=== PATIENT | female | born 1980 | race Caucasian/White ===

== ENCOUNTER 2016-08-19 13:38 | Emergency (ER) | payer OTHER ==
[~2016-08-19 13:38] MED LIST: /MIRT15TA PO; /ONDA4TA PO; /PANT40TA PO; DEPRO PROVERA SC; ERYT25CAEC PO; GABA100C PO; HUMA100I SC; HUMA100I5 SC; INSULANT SC; MARI5CAP PO; NAPR500T3 PO; NICO14DI20 TD; PARO20TA2 PO; PRE-TAB3 PO; PRIL20CA9 PO; PROM25TA3 PO; REGL10TA6 PO; TRAZ50TA2 PO; TYLE325T5 PO; XANA0.25 PO; ZOFR20TA PO
[2016-08-19] MEDS ORDERED: METOCLOPRAMIDE INJ 10MG/2ML VIAL (J2765) As Ordered ONE (14:02)
[2016-08-19] MEDS ORDERED: NS 1,000 ML IV ONE (14:15)
[2016-08-19] MEDS ORDERED: METOCLOPRAMIDE INJ 10MG/2ML VIAL (J2765) IV ONE (14:15)
[2016-08-19 14:22] LABS: BASO # 0.1 K/mm3 (0.0-0.2); BASO % 0.5 % (0.0-1.0); EOS # 0.1 K/mm3 (0.0-0.50); EOS % 0.3 % (0.0-3.0); LARGE UNSTAINED CELL # 0.1 K/mm3 (0.0-0.4); LARGE UNSTAINED CELL % 0.4 % (0.0-4.0); LYMPH # 2.2 K/mm3 (1.5-4.5); MEAN CORPUSCULAR HEMOGLOBIN 31.5 pg (27.0-33.0); MEAN CORPUSCULAR HGB CONC 34.2 g/dl (32.0-36.5); MEAN CORPUSCULAR VOLUME 92.1 fl (80.0-96.0); MONO # 0.4 K/mm3 (0.0-0.8); MONO % 1.7 % (0.0-5.0); NEUTROPHILS # 21.6 K/mm3 (1.8-7.7); NEUTROPHILS % 88.1 % (36.0-66.0); PLATELET COUNT, AUTOMATED 306 k/mm3 (150-450); RED CELL DISTRIBUTION WIDTH 12.2 % (11.5-14.5); WHITE BLOOD COUNT 24.5 K/mm3 (4.0-10.0)
[2016-08-19] MEDS ORDERED: LORazepam 2 MG/ML VIAL (J2060) IV STA (14:24)
[2016-08-19] MEDS ORDERED: LORazepam 2 MG/ML VIAL (J2060) As Ordered ONE (14:25)
[2016-08-19 14:34] LABS: CONTROL LINE HCG INT CTR LINE PRESENT
[2016-08-19 14:41] LABS: ALBUMIN 4.6 GM/DL (3.2-5.2); ALBUMIN/GLOBULIN RATIO 1.64 (1.00-1.93); ALKALINE PHOSPHATASE 71 U/L (45-117); ALT/SGPT 35 U/L (12-78); ANION GAP 15 MEQ/L (8-16); AST/SGOT 22 U/L (15-37); BILIRUBIN,DIRECT 0.2 MG/DL (0.0-0.2); BILIRUBIN,TOTAL 0.6 MG/DL (0.2-1.0); BLOOD UREA NITROGEN 14 MG/DL (7-18); CARBON DIOXIDE LEVEL 19 MEQ/L (21-32); CHLORIDE LEVEL 105 MEQ/L (98-107); CREATININE FOR GFR 0.88 MG/DL (0.55-1.02); GLOMERULAR FILTRATION RATE > 60.0 (>60); GLUCOSE, FASTING 273 MG/DL (70-105); POTASSIUM SERUM 3.8 MEQ/L (3.5-5.1); SODIUM LEVEL 139 MEQ/L (136-145); TOTAL PROTEIN 7.4 GM/DL (6.4-8.2)
--- NOTE | 2016-08-19 17:00 | REP ---
ABDOMINAL SERIES: Supine and erect views of the abdomen are performed. There is no free air. There is no obstruction. There are no dilated small bowel loops. No abnormal calcifications are seen in the abdomen or pelvis. An accompanying view of the chest demonstrates no acute infiltrate. Heart is normal in size. IMPRESSION: Negative abdominal series. Signed by Eber Lazo MD 08/19/2016 05:27 P
[2016-08-19 17:25] LABS: ANION GAP 8 MEQ/L (8-16); BLOOD UREA NITROGEN 14 MG/DL (7-18); CALCIUM LEVEL 8.9 MG/DL (8.5-10.1); CARBON DIOXIDE LEVEL 25 MEQ/L (21-32); CHLORIDE LEVEL 105 MEQ/L (98-107); CREATININE FOR GFR 0.71 MG/DL (0.55-1.02); GLOMERULAR FILTRATION RATE > 60.0 (>60); GLUCOSE, FASTING 252 MG/DL (70-105); POTASSIUM SERUM 3.8 MEQ/L (3.5-5.1); SODIUM LEVEL 138 MEQ/L (136-145)
[2016-08-19] MEDS ORDERED: PROMETHAZINE INJ 25 MG/ML VIAL (J2550) IV ONE (18:15)
[2016-08-19] MEDS ORDERED: ATIV1TAB7 PO (18:20)
[2016-08-19 19:52] VITALS: BP 104/55
== END 2016-08-19 19:55 | disposition home or self-care (01) ==
LOC: EDBD 13:38 → M ED 15:18
DX: K31.84 Gastroparesis (principal); E11.9 Type 2 diabetes mellitus without complications; F17.200 Nicotine dependence, unspecified, uncomplicated; Z79.4 Long term (current) use of insulin; Z79.899 Other long term (current) drug therapy

== ENCOUNTER → 2016-11-24 | Outpatient (REF) | payer OTHER ==
[~2016-11-24] MED LIST changes: +ATIV1TAB7 PO
[2016-11-24 10:51] LABS: FOLATE 8.5 NG/ML (>5.4); VITAMIN B12 LEVEL 803 PG/ML (247-911)
[2016-11-24 10:59] LABS: FREE T4 1.13 NG/DL (0.76-1.46)
[2016-11-29 12:29] LABS: ALBUMIN 4.42 GM/DL (3.29-5.55); ALBUMIN % 63.2 % (55.8-66.1)
[2016-11-29 12:30] LABS: GAMMA GLOBULIN % 9.7 % (11.1-18.8)
== END ==
LOC: M LABNEURO 08:42
PROVIDERS: ATTEND Psychiatry & Neurology Neurology
DX: E11.42 Type 2 diabetes mellitus with diabetic polyneuropathy (principal)

== ENCOUNTER 2017-02-15 12:29 | Day surgery (SDC) | payer OTHER ==
[~2017-02-15] VITALS: Ht 167.6 cm; Wt 70.3 kg
[~2017-02-15 12:29] MED LIST changes: +ATOR1TAB21 PO; +BASA100I SQ; +NORT50CA PO; +VITA1CAP40 PO
[2017-02-15] MEDS ORDERED: NS 1,000 ML IV ONE (13:00)
[2017-02-15] MEDS ORDERED: LIDOCAINE 2% INJ 100 MG/5 ML SDV (FOR ANES.) As Ordered ONE (14:04)
[2017-02-15] MEDS ORDERED: PROPOFOL 500 MG/50 ML VIAL As Ordered ONE (14:04)
--- NOTE | 2017-02-15 14:10 | ROOR ---
Patient Name: Katrin Somers Procedure Date: 02/15/2017 1:48 PM Date of : 1980 Age: 36 Room: [facility] [place] Gender: Female Note Status: Finalized Procedure: Upper Endoscopy + Biopsies Indications: Epigastric abdominal pain, Gastroparesis, Follow-up of gastroparesis Providers: Tremayne Lee MD Referring MD: SANDRA SUÁREZ MD Requesting Provider: Medicines: Monitored Anesthesia Care Complications: No immediate complications. Procedure: Pre-Anesthesia Assessment: - The heart rate, respiratory rate, oxygen saturations, blood pressure, adequacy of pulmonary ventilation, and response to care were monitored throughout the procedure. The Endoscope was introduced through the mouth, and advanced to the second part of duodenum. The upper GI endoscopy was accomplished without difficulty. The patient tolerated the procedure well. Findings: The Z-line was irregular and was found 35 cm from the incisors. Multiple biopsies were obtained with cold forceps for evaluation to rule out Rowan's Esophagus randomly at the gastroesophageal junction. A medium-sized hiatal hernia was present. No other significant abnormalities were identified in a careful examination of the stomach. The exam of the duodenum was otherwise normal. Impression: - Z-line irregular, 35 cm from the incisors. - Medium-sized hiatal hernia. - Multiple biopsies were obtained at the gastroesophageal junction. - The examination was otherwise normal. Recommendation: - Patient has a contact number available for emergencies. The signs and symptoms of potential delayed complications were discussed with the patient. Return to normal activities tomorrow. Written discharge instructions were provided to the patient. - Resume previous diet. - Continue present medications. - Await pathology results. - Telephone GI clinic for pathology results in 1 week. - Return to referring physician. - The findings and recommendations were discussed with the patient's family. Tremayne Lee MD Tremayne Lee MD 02/15/2017 2:09:56 PM This report has been signed electronically. Number of Addenda: 0 Note Initiated On: 02/15/2017 1:48 PM Estimated Blood Loss: Estimated blood loss: none.
[2017-02-15 14:35] VITALS: BP 141/85
== END 2017-02-15 14:48 | disposition home or self-care (01) ==
LOC: M OPP 12:29
PROVIDERS: ATTEND Internal Medicine Gastroenterology
DX: R10.13 Epigastric pain (principal); K31.84 Gastroparesis; K22.8 Other specified diseases of esophagus; K44.9 Diaphragmatic hernia without obstruction or gangrene; E78.5 Hyperlipidemia, unspecified; E10.9 Type 1 diabetes mellitus without complications; K21.9 Gastro-esophageal reflux disease without esophagitis; G62.9 Polyneuropathy, unspecified; F17.210 Nicotine dependence, cigarettes, uncomplicated; F12.10 Cannabis abuse, uncomplicated; Z79.899 Other long term (current) drug therapy

== ENCOUNTER 2017-03-10 13:57 | Emergency (ER) | payer OTHER ==
[2017-03-10] MEDS: ONDANSETRON 4MG/2ML VIAL (J2405) IV ×2 (14:25→17:39)
[2017-03-10] MEDS: PANTOPRAZOLE 40MG INJ (PROTONIX) (C9113) IV (14:25)
[2017-03-10] MEDS: KETOROLAC 30 MG/ML VIAL (J1885) IV (14:25)
[2017-03-10 14:27] LABS: BASO # 0.1 10^3/uL (0.0-0.2); BASO % 0.4 % (0.0-1.0); EOS % 0.1 % (0.0-3.0); HEMATOCRIT 42.6 % (36.0-47.0); HEMOGLOBIN 14.8 g/dl (12.0-16.0); IMMATURE GRANULOCYTE # 0.2 10^3/uL (0-0); IMMATURE GRANULOCYTE % 0.6 % (0-0); LYMPH # 2.2 10^3/uL (1.5-4.5); LYMPH % 8.6 % (24.0-44.0); MEAN CORPUSCULAR HEMOGLOBIN 30.2 pg (27.0-33.0); MEAN CORPUSCULAR HGB CONC 34.7 g/dl (32.0-36.5); MEAN CORPUSCULAR VOLUME 86.9 fl (80.0-96.0); MONO # 0.9 10^3/uL (0.0-0.8); MONO % 3.5 % (0.0-5.0); NEUTROPHILS # 21.9 10^3/uL (1.8-7.7); NEUTROPHILS % 86.8 % (36.0-66.0); PLATELET COUNT, AUTOMATED 339 10^3/uL (150-450); WHITE BLOOD COUNT 25.3 10^3/uL (4.0-10.0)
[2017-03-10] MEDS: NS 1,000 ML IV ×2 (14:37→17:39)
[2017-03-10 14:38] LABS: CONTROL LINE HCG INT CTR LINE PRESENT; HCG, SERUM QUALITATIVE NEGATIVE (NEGATIVE)
[2017-03-10 14:47] LABS: ALBUMIN 4.3 GM/DL (3.2-5.2); ALBUMIN/GLOBULIN RATIO 1.34 (1.00-1.93); ALKALINE PHOSPHATASE 83 U/L (45-117); ALT/SGPT 76 U/L (12-78); ANION GAP 11 MEQ/L (8-16); AST/SGOT 39 U/L (7-37); BILIRUBIN,DIRECT 0.1 MG/DL (0.0-0.2); BILIRUBIN,TOTAL 0.6 MG/DL (0.2-1.0); BLOOD UREA NITROGEN 14 MG/DL (7-18); CARBON DIOXIDE LEVEL 21 MEQ/L (21-32); CHLORIDE LEVEL 106 MEQ/L (98-107); CREATININE FOR GFR 0.73 MG/DL (0.55-1.02); GLOMERULAR FILTRATION RATE > 60.0 (>60); GLUCOSE, FASTING 342 MG/DL (70-105); LIPASE 70 U/L (73-393); POTASSIUM SERUM 3.8 MEQ/L (3.5-5.1); SODIUM LEVEL 138 MEQ/L (136-145); TOTAL PROTEIN 7.5 GM/DL (6.4-8.2)
[2017-03-10] MEDS: diphenhydrAMINE INJ 50MG/ML VIAL (J1200) IV (15:00)
[2017-03-10] MEDS: MORPHINE 4 MG/ML 1ML SYRINGE IV (15:00)
[2017-03-10] MEDS: METOCLOPRAMIDE INJ 10MG/2ML VIAL (J2765) IV (15:48)
[2017-03-10] MEDS: HumuLIN R (REGULAR) INSULIN (NovoLIN R) **100U/ML** PER UNIT IV (15:48)
[2017-03-10 16:54] LABS: BEDSIDE GLUCOSE 148 MG/DL (70-105)
[2017-03-10 17:06] LABS: KETONE, URINE AUTO RFX 2+ mg/dL (NEGATIVE); LEUKOCYTE ESTERASE UR AUTO RFX NEGATIVE (NEGATIVE); NITRITE, URINE AUTO RFX NEGATIVE (NEGATIVE); RBC, URINE AUTO RFX 1 /HPF (0-3); SPECIFIC GRAVITY UR AUTO RFX 1.029 (1.002-1.035); SQUAM EPITHELIAL CELL UR AURFX 2 /HPF (0-6); WBC, URINE AUTO RFX 0 /HPF (0-3)
== END 2017-03-10 18:58 | disposition home or self-care (01) ==
LOC: M ED 13:57
DX: R10.84 Generalized abdominal pain (principal); R11.2 Nausea with vomiting, unspecified; R19.7 Diarrhea, unspecified; E11.9 Type 2 diabetes mellitus without complications; G62.9 Polyneuropathy, unspecified; Z79.899 Other long term (current) drug therapy; Z79.4 Long term (current) use of insulin
CPT/HCPCS: C9113

== ENCOUNTER 2017-12-26 06:19 | Emergency (ER) | payer OTHER ==
[2017-12-26] MEDS: KETOROLAC TROMETHAMINE 10 MG TAB PO (07:09)
[2017-12-26 07:38] LABS: BASO # 0.1 10^3/uL (0.0-0.2); BASO % 0.4 % (0.0-1.0); EOS # 0.3 10^3/uL (0.0-0.50); EOS % 2.3 % (0.0-3.0); HEMATOCRIT 41.2 % (36.0-47.0); HEMOGLOBIN 13.6 g/dl (12.0-15.5); IMMATURE GRANULOCYTE % 0.6 % (0-3.0); LYMPH % 34.4 % (24.0-44.0); MEAN CORPUSCULAR HEMOGLOBIN 31.1 pg (27.0-33.0); MEAN CORPUSCULAR VOLUME 94.1 fl (80.0-96.0); MONO # 0.7 10^3/uL (0.0-0.8); MONO % 5.8 % (0.0-5.0); NEUTROPHILS # 6.5 10^3/uL (1.8-7.7); NEUTROPHILS % 56.5 % (36.0-66.0); PLATELET COUNT, AUTOMATED 300 10^3/uL (150-450); RED BLOOD COUNT 4.38 10^6/uL (4.00-5.40); RED CELL DISTRIBUTION WIDTH 12.8 % (11.5-14.5); WHITE BLOOD COUNT 11.5 10^3/uL (4.0-10.0)
[2017-12-26 07:51] LABS: C REACTIVE PROTEIN QUANTITATIV 0.37 MG/DL (0.00-0.30)
[2017-12-26 07:52] LABS: ANION GAP 4 MEQ/L (8-16); BLOOD UREA NITROGEN 6 MG/DL (7-18); CALCIUM LEVEL 9.2 MG/DL (8.5-10.1); CARBON DIOXIDE LEVEL 29 MEQ/L (21-32); CHLORIDE LEVEL 109 MEQ/L (98-107); CREATININE FOR GFR 0.64 MG/DL (0.55-1.30); GLOMERULAR FILTRATION RATE > 60.0 (>60); GLUCOSE, FASTING 122 MG/DL (70-100); POTASSIUM SERUM 4.2 MEQ/L (3.5-5.1); SODIUM LEVEL 142 MEQ/L (136-145)
[2017-12-26 08:08] LABS: ERYTHROCYTE SEDIMENTATION RATE 8 mm/hr (0-20)
== END 2017-12-26 08:50 | disposition home or self-care (01) ==
LOC: M ED 06:19
DX: M79.672 Pain in left foot (principal); R22.42 Localized swelling, mass and lump, left lower limb; E10.9 Type 1 diabetes mellitus without complications; E78.00 Pure hypercholesterolemia, unspecified; F33.9 Major depressive disorder, recurrent, unspecified; F41.9 Anxiety disorder, unspecified; G62.9 Polyneuropathy, unspecified; Z79.899 Other long term (current) drug therapy; Z79.4 Long term (current) use of insulin
CPT/HCPCS: 73630

== ENCOUNTER 2019-03-13 14:04 | Emergency (ER) | payer OTHER ==
[~2019-03-13 14:04] MED LIST changes: -/MIRT15TA PO; -/ONDA4TA PO; -/PANT40TA PO; +CLEO300C2 PO; +MIRT1TAB20 PO; +NAPR-885 PO; -NAPR500T3 PO; +ONDA-1 PO; +PHEN1SUP7 PR; +PROT1TAB2 PO; -VITA1CAP40 PO; +VITA50005 PO; -ZOFR20TA PO; +ZOFR4TAB16 PO
[2019-03-13] MEDS ORDERED: ADME100I2 (14:20)
[2019-03-13 14:48] LABS: BASO # 0.1 10^3/uL (0.0-0.2); BASO % 0.4 % (0.0-1.0); HEMATOCRIT 40.7 % (36.0-47.0); HEMOGLOBIN 13.6 g/dl (12.0-15.5); LYMPH # 1.5 10^3/uL (1.5-5.0); LYMPH % 7.6 % (24.0-44.0); MEAN CORPUSCULAR HEMOGLOBIN 29.7 pg (27.0-33.0); MEAN CORPUSCULAR HGB CONC 33.4 g/dl (32.0-36.5); MEAN CORPUSCULAR VOLUME 88.9 fl (80.0-96.0); MONO # 0.5 10^3/uL (0.0-0.8); MONO % 2.6 % (0.0-5.0); NEUTROPHILS # 18.1 10^3/uL (1.5-8.5); NEUTROPHILS % 88.7 % (36.0-66.0); PLATELET COUNT, AUTOMATED 347 10^3/uL (150-450); RED BLOOD COUNT 4.58 10^6/uL (4.00-5.40); WHITE BLOOD COUNT 20.4 10^3/uL (4.0-10.0)
[2019-03-13 15:11] LABS: ALBUMIN 4.1 GM/DL (3.2-5.2); ALT/SGPT 16 U/L (12-78); BILIRUBIN,DIRECT 0.2 MG/DL (0.0-0.2); BILIRUBIN,TOTAL 0.5 MG/DL (0.2-1.0); BLOOD UREA NITROGEN 13 MG/DL (7-18); CALCIUM LEVEL 9.3 MG/DL (8.5-10.1); CARBON DIOXIDE LEVEL 21 MEQ/L (21-32); CHLORIDE LEVEL 105 MEQ/L (98-107); CREATININE FOR GFR 0.82 MG/DL (0.55-1.30); GLOMERULAR FILTRATION RATE > 60.0 (>60); GLUCOSE, FASTING 341 MG/DL (70-100); LIPASE 108 U/L (73-393); SODIUM LEVEL 138 MEQ/L (136-145); TOTAL PROTEIN 7.2 GM/DL (6.4-8.2)
[2019-03-13 15:32] LABS: HCG, SERUM QUALITATIVE NEGATIVE (NEGATIVE)
[2019-03-13] MEDS ORDERED: NS 1,000 ML IV ONE (15:45)
[2019-03-13] MEDS ORDERED: KETOROLAC 30 MG/ML VIAL (J1885) IV ONE (15:45)
[2019-03-13] MEDS ORDERED: METOCLOPRAMIDE INJ 10MG/2ML VIAL (J2765) IV ONE (15:45)
[2019-03-13] MEDS ORDERED: PANTOPRAZOLE 40MG INJ (PROTONIX) (C9113) IV ONE (15:45)
[2019-03-13 16:08] LABS: HEMOGLOBIN A1c 7.7 %
--- NOTE | 2019-03-13 16:36 | REP ---
Abdomen series: Two views. History: Pain and vomiting. Findings: Supine and upright views of the abdomen demonstrate a virtually gasless abdomen. Psoas margins and flank stripes are intact. There is a small quantity of gas in the stomach and in a single small bowel loop in the left central abdomen. No fluid distended loops are visible. No mass or pathologic calcification is seen. Impression: Essentially gasless abdomen. No evidence of obstruction. No evidence of free air. Electronically Signed by Bruce Diehl MD 03/13/2019 04:27 P
[2019-03-13] MEDS ORDERED: ISOVUE-370 76% 100ML VIAL (Q9967) As Ordered ONE (17:39)
[2019-03-13] MEDS ORDERED: MORPHINE 4 MG/ML 1ML VIAL/SYRINGE (J2270) IV ONE (18:15)
--- NOTE | 2019-03-13 18:24 | REPVR ---
PROCEDURE INFORMATION: Exam: CT Abdomen And Pelvis With Contrast Exam date and time: 03/13/2019 6:00 PM Age: 38 years old Clinical indication: Abdominal pain; Generalized TECHNIQUE: Imaging protocol: Computed tomography of the abdomen and pelvis with intravenous contrast. Radiation optimization: All CT scans at this facility use at least one of these dose optimization techniques: automated exposure control; mA and/or kV adjustment per patient size (includes targeted exams where dose is matched to clinical indication); or iterative reconstruction. Contrast material: ISOVUE 370; Contrast volume: 100 ml; Contrast route: IV; COMPARISON: CT ABD PELVIS WITH CONTRAST 11/14/2013 5:10 PM FINDINGS: Lungs: No suspicious mass or airspace process in the visualized lung bases. Liver: Liver appears normal with no focal abnormality. Gallbladder and bile ducts: Gallbladder is present and shows no evidence of gallstone. Pancreas: Pancreas appears normal. No focal mass or peripancreatic inflammation. Spleen: Spleen appears homogeneous without focal mass. Adrenals: Adrenal glands are normal in appearance. Kidneys and ureters: Kidneys demonstrate no stone, solid mass or hydronephrosis. There does appear to be patchy cortical decreased enhancement bilaterally, probably most prominent in the upper pole left kidney, suggesting possible pyelonephritis Stomach and bowel: No evidence of small bowel obstruction. No evidence of acute diverticulitis. Appendix: Normal caliber appendix is identified, with no adjacent inflammation. Intraperitoneal space: No pneumoperitoneum. No abnormal pelvic mass. Vasculature: Atherosclerotic change present in the aorta, without aneurysm. Main portal and splenic veins enhance normally. Lymph nodes: No bulky lymphadenopathy. Bladder: Urinary bladder appears normal. Bones/joints: Bony structures show no acute fracture or destructive process. Soft tissues: No effacement of normal fat planes in the ischiorectal fossa. IMPRESSION: 1. Patchy enhancement involving the kidneys, which appears to involve the cortical tissue, suggesting possible multifocal pyelonephritis. No obstructive change. Correlation with labs is recommended. 2. No other concerning finding. Electronically signed by: Rajiv Baptiste On 03/13/2019 18:24:17 PM
[2019-03-13] MEDS ORDERED: PANT20TA2 PO (20:51)
[2019-03-13] MEDS ORDERED: REGL10TA6 PO (20:51)
[2019-03-13 20:57] VITALS: BP 167/82
--- NOTE | 2019-03-15 06:35 | ED PDOC ---
Post-Departure Follow-Up dr enriquez faxed formal report of ct for fu karinag Jose Rollins MD Mar 15, 2019 06:35
== END 2019-03-13 21:02 | disposition home or self-care (01) ==
LOC: M ED 14:04 → EDBD 14:04 → M ED 21:02
DX: K31.84 Gastroparesis (principal); E10.9 Type 1 diabetes mellitus without complications; F33.9 Major depressive disorder, recurrent, unspecified; F41.9 Anxiety disorder, unspecified; E78.5 Hyperlipidemia, unspecified; G62.9 Polyneuropathy, unspecified; Z79.899 Other long term (current) drug therapy; Z79.4 Long term (current) use of insulin; F17.210 Nicotine dependence, cigarettes, uncomplicated
CPT/HCPCS: 74019; 74177; 80048; 80076; 81001; 83036; 83690; 84703; 85025; 87088; 87186; 96361; 96374; 96375; 99284; C9113; J1885; J2270; J2765; Q9967

== ENCOUNTER → 2020-12-07 | Outpatient (REF) | payer OTHER ==
[~2020-12-07] MED LIST changes: +ADME100I2; +ERYT1CAP2 PO; -ERYT25CAEC PO; +PANT20TA6 PO
[2020-12-07 18:10] LABS: MALB URINE SIEMENS 51.4 MG/L; MAU/CREAT RATIO 44.3 MCG/MG (0.0-30.0)
== END ==
LOC: M LAB REF 16:56
PROVIDERS: ATTEND Nurse Practitioner Family
DX: E10.65 Type 1 diabetes mellitus with hyperglycemia (principal)

== ENCOUNTER → 2021-01-04 | Outpatient (REF) | payer OTHER ==
[2021-01-04 16:22] LABS: CREATININE 24 HOUR, URINE 946.5 MG/24HR (600-1800); CREATININE, URINE 63.1 MG/DL; URINE TOTAL PROTEIN 10.8 MG/DL (0-12)
== END ==
LOC: M LAB REF 13:44
PROVIDERS: ATTEND Internal Medicine Nephrology
DX: E10.22 Type 1 diabetes mellitus with diabetic chronic kidney disease (principal)

== ENCOUNTER → 2022-06-29 | Day surgery (SDC) | payer OTHER ==
[~2022-06-29] VITALS: Ht 167.6 cm; Wt 61.2 kg
[~2022-06-29] MED LIST changes: +ERGO500029; +GABA-282 PO; +NS 1,000 ML IV ONE; +OMEP-173 PO; +ONDANSETRON 4MG 2ML VIAL IV STA
[2022-06-29 07:28] VITALS: BP 190/98
== END | disposition home or self-care (01) ==
LOC: M OPP 06:52
PROVIDERS: ATTEND Internal Medicine Gastroenterology
DX: R11.2 Nausea with vomiting, unspecified (principal); Z53.8 Procedure and treatment not carried out for other reasons

== ENCOUNTER → 2022-10-13 | Outpatient (REF) ==
[~2022-10-13] MED LIST changes: -NS 1,000 ML IV ONE; -ONDANSETRON 4MG 2ML VIAL IV STA
== END ==
LOC: M PLAIMG 08:22
PROVIDERS: ATTEND Internal Medicine
DX: M54.50 Low back pain, unspecified (principal); M51.36 Other intervertebral disc degeneration, lumbar region; M50.30 Other cervical disc degeneration, unspecified cervical region

== ENCOUNTER → 2023-03-07 | Outpatient (CLI) | payer OTHER ==
[~2023-03-07] MED LIST changes: +INSU100I24 SC; +ONDA-83 PO
== END ==
LOC: M RAD 14:36
PROVIDERS: ATTEND Physician Assistant
DX: Z91.81 History of falling (principal); M79.641 Pain in right hand; M25.531 Pain in right wrist

== ENCOUNTER → 2023-09-12 | Outpatient (CLI) | payer OTHER | LOC: M RAD 07:28 | PROVIDERS: ATTEND Nurse Practitioner | DX: K31.84 Gastroparesis (principal) | CPT/HCPCS: 78264; A9541 ==

== ENCOUNTER → 2024-06-17 | Outpatient (CLI) | payer OTHER ==
[~2024-06-17] MED LIST changes: -ERYT1CAP2 PO; +ERYT250C50 PO; +GABA-1172 PO; -GABA-282 PO
== END ==
LOC: M RAD 14:26
PROVIDERS: ATTEND Nurse Practitioner Family
DX: M54.2 Cervicalgia (principal); K52.89 Other specified noninfective gastroenteritis and colitis; K31.84 Gastroparesis; K21.9 Gastro-esophageal reflux disease without esophagitis; K59.00 Constipation, unspecified